=== PATIENT | female | born 1940 | race Caucasian/White ===

== ENCOUNTER 2024-03-01 14:15 | Inpatient (IN) | payer MEDICARE ==
[~2024-03-01] VITALS: Ht 160 cm; Wt 54.4 kg
[2024-03-01] MEDS ORDERED: ACETAMINOPHEN 325 MG TABLET ONE (15:21)
[2024-03-01] MEDS: ACETAMINOPHEN 325 MG TABLET PO ONE (15:46)
[2024-03-01] MEDS ORDERED: VITAMIN E PO (17:27)
[2024-03-01] MEDS ORDERED: CHOL100045 PO (17:27)
[2024-03-01] MEDS ORDERED: CYAN500T64 (17:27)
[2024-03-01] MEDS ORDERED: ASPI-1420 PO (17:27)
[2024-03-01] MEDS ORDERED: FAMO40TA7 PO (17:27)
[2024-03-01] MEDS ORDERED: GLUC15006 PO (17:27)
[2024-03-01] MEDS ORDERED: LISI10TA29 PO (17:27)
[2024-03-01] MEDS ORDERED: ESCI10TA PO (17:27)
[2024-03-01] MEDS ORDERED: METF-440 PO (17:27)
[2024-03-01] MEDS ORDERED: OMEG-167 PO (17:27)
[2024-03-01] MEDS ORDERED: MEMA10TA PO (17:27)
[2024-03-01] MEDS ORDERED: DONE5TAB34 PO (17:27)
[2024-03-01] MEDS ORDERED: UBID300C PO (17:27)
[2024-03-01] MEDS ORDERED: ATOR20TA PO (17:27)
[2024-03-01] MEDS ORDERED: SULF500T8 PO (17:27)
[2024-03-01 18:18] VITALS: O2SAT 98
[2024-03-01] MEDS: IBUPROFEN 600 MG TABLET PO ONE (18:23)
[2024-03-01 18:39] LABS: BASOPHILS # (AUTO) 0.1 K/uL (0.0-0.2); BASOPHILS % (AUTO) 0.4 % (0.0-2.0); EOSINOPHILS # (AUTO) 0.3 K/uL (0.0-0.7); HEMATOCRIT 34 % (33-45); HEMOGLOBIN 11.4 g/dL (11.5-14.8); LYMPHOCYTES # (AUTO) 1.9 K/uL (0.8-4.8); LYMPHOCYTES % (AUTO) 14.5 % (20.0-44.0); MEAN CORPUSCULAR HEMOGLOBIN 31 PG (26.0-33.0); MEAN CORPUSCULAR HGB CONC 33 g/dl (31.0-36.0); MEAN CORPUSCULAR VOLUME 93 fL (82-100); NEUTROPHILS # (AUTO) 9.8 K/uL (1.8-8.9); NEUTROPHILS % (AUTO) 75.1 % (43.0-81.0); PLATELET COUNT (AUTO) 131 K/uL (150-450); RED BLOOD CELL COUNT(AUTO) 3.69 MIL/uL (4.0-5.2); RED CELL DISTRIBUTION WIDTH 14.3 % (11.5-15.0); WHITE BLOOD COUNT (AUTO) 13.1 K/uL (4.3-11.0)
[2024-03-01 18:52] LABS: CALCIUM, SERUM 9.4 mg/dL (8.5-10.1); POTASSIUM 4.1 mmol/L (3.5-5.1)
[2024-03-01] MEDS ORDERED: ACETAMINOPHEN 325 MG TABLET PO PRN (19:00)
[2024-03-01] MEDS ORDERED: ONDANSETRON HCL/PF 4 MG/2 ML VIAL IVP PRN (19:00)
[2024-03-01 21:16] VITALS: BP 177/76; TEMP 98.2; O2SAT 96
[2024-03-01] MEDS: IV NS 0.9% 1,000 ML IV PRN (21:48)
[2024-03-01] MEDS: ENOXAPARIN SODIUM 40 MG/0.4 ML DISP.SYRIN SQ SCH (22:05)
[2024-03-02] MEDS: HYDROCODONE/APAP 5/325MG TABLET PO PRN (00:22)
[2024-03-02 05:52] VITALS: BP 140/57
[2024-03-02 07:24] LABS: BASOPHILS # (AUTO) 0.1 K/uL (0.0-0.2); BASOPHILS % (AUTO) 0.7 % (0.0-2.0); EOSINOPHILS # (AUTO) 0.4 K/uL (0.0-0.7); EOSINOPHILS % (AUTO) 4.4 % (0.0-6.0); HEMATOCRIT 33 % (33-45); LYMPHOCYTES # (AUTO) 1.4 K/uL (0.8-4.8); LYMPHOCYTES % (AUTO) 17.8 % (20.0-44.0); MEAN CORPUSCULAR HEMOGLOBIN 31 PG (26.0-33.0); MEAN CORPUSCULAR HGB CONC 34 g/dl (31.0-36.0); MEAN CORPUSCULAR VOLUME 94 fL (82-100); MONOCYTES # (AUTO) 0.7 K/uL (0.1-1.30); MONOCYTES % (AUTO) 8.7 % (2.0-12.0); NEUTROPHILS # (AUTO) 5.5 K/uL (1.8-8.9); NEUTROPHILS % (AUTO) 68.4 % (43.0-81.0); PLATELET COUNT (AUTO) 121 K/uL (150-450); RED BLOOD CELL COUNT(AUTO) 3.52 MIL/uL (4.0-5.2)
[2024-03-02 07:43] LABS: CARBON DIOXIDE 26 mmol/L (21-32); CHLORIDE 107 mmol/L (98-107); GLUCOSE 127 mg/dL (74-106); PHOSPHORUS 2.9 mg/dL (2.5-4.9); POTASSIUM 3.9 mmol/L (3.5-5.1); SODIUM SERUM 141 mmol/L (136-145); UREA NITROGEN, BLOOD 18 mg/dL (7-18)
[2024-03-02 07:49] LABS: APPEARANCE,URINE CLEAR (CLEAR); BILIRUBIN,URINE NEGATIVE (NEGATIVE); BLOOD, URINE NEGATIVE Ery/uL (NEGATIVE); COLOR,URINE YELLOW (YELLOW); KETONES,URINE NEGATIVE (NEGATIVE); LEUKOCYTE ESTERASE ,URINE NEGATIVE (NEGATIVE); NITRITE, URINE NEGATIVE (NEGATIVE); PROTEIN,URINE NEGATIVE (NEGATIVE); UGLUCOSE NEGATIVE (NEGATIVE); UROBILINOGEN,URINE 0.2 EU/dL (0.2)
[2024-03-02 08:00] VITALS: BP_SYST 131; BP_SYST 166; BP_DIAS 59; BP_DIAS 64; TEMP 98.2; TEMP 99; O2SAT 99
[2024-03-02 16:00] VITALS: BP 144/65; TEMP 98.9; O2SAT 89
[2024-03-02] MEDS ORDERED: Medication Not On Formulary EA (Omega-3 Fatty Acids/Fish Oil (Fish Oil 1,000 Mg Softgel) PO SCH (17:00)
[2024-03-02] MEDS ORDERED: Medication Not On Formulary EA (Ubidecarenone (Co Q-10) 300 MG) PO SCH (18:00)
[2024-03-02] MEDS ORDERED: GLUCOSAMINE HCL 3000 MG PO SCH (18:00)
[2024-03-02] MEDS: VITAMIN E 400 UNIT CAPSULE PO SCH (19:06)
[2024-03-02] MEDS: MEMANTINE HCL 5 MG TABLET PO SCH (19:07)
[2024-03-02] MEDS: ATORVASTATIN 10 MG TABLET PO SCH (19:07)
[2024-03-02] MEDS: FAMOTIDINE (20 MG) 20 MG TABLET PO SCH (19:08)
[2024-03-02] MEDS: LISINOPRIL (10MG) 10 MG TABLET PO SCH (19:08)
[2024-03-02] MEDS: METFORMIN 500 MG TABLET PO SCH (19:09)
[2024-03-02] MEDS: ESCITALOPRAM OXALATE (10 MG) 10 MG TABLET PO SCH (19:09)
[2024-03-02 20:00] VITALS: BP 155/64; TEMP 97.9; O2SAT 98
[2024-03-03 07:32] LABS: BASOPHILS # (AUTO) 0.1 K/uL (0.0-0.2); BASOPHILS % (AUTO) 0.9 % (0.0-2.0); EOSINOPHILS # (AUTO) 0.2 K/uL (0.0-0.7); EOSINOPHILS % (AUTO) 1.6 % (0.0-6.0); HEMATOCRIT 30 % (33-45); HEMOGLOBIN 9.9 g/dL (11.5-14.8); LYMPHOCYTES # (AUTO) 1.4 K/uL (0.8-4.8); LYMPHOCYTES % (AUTO) 14.2 % (20.0-44.0); MEAN CORPUSCULAR HEMOGLOBIN 31 PG (26.0-33.0); MEAN CORPUSCULAR HGB CONC 33 g/dl (31.0-36.0); MEAN CORPUSCULAR VOLUME 94 fL (82-100); MONOCYTES # (AUTO) 0.7 K/uL (0.1-1.30); MONOCYTES % (AUTO) 6.9 % (2.0-12.0); NEUTROPHILS # (AUTO) 7.5 K/uL (1.8-8.9); NEUTROPHILS % (AUTO) 76.4 % (43.0-81.0); PLATELET COUNT (AUTO) 96 K/uL (150-450); RED BLOOD CELL COUNT(AUTO) 3.19 MIL/uL (4.0-5.2); RED CELL DISTRIBUTION WIDTH 14.4 % (11.5-15.0); WHITE BLOOD COUNT (AUTO) 9.8 K/uL (4.3-11.0)
[2024-03-03 07:55] LABS: CALCIUM, SERUM 8.7 mg/dL (8.5-10.1); CARBON DIOXIDE 24 mmol/L (21-32); CHLORIDE 107 mmol/L (98-107); CREATININE 0.8 mg/dL (0.6-1.3); GLUCOSE 114 mg/dL (74-106); MAGNESIUM 1.9 mg/dL (1.8-2.4); PHOSPHORUS 2.2 mg/dL (2.5-4.9); POTASSIUM 3.9 mmol/L (3.5-5.1); SODIUM SERUM 139 mmol/L (136-145); UREA NITROGEN, BLOOD 12 mg/dL (7-18)
[2024-03-03 08:00] VITALS: BP 156/70; TEMP 99.1; O2SAT 92
[2024-03-03] MEDS: DONEPEZIL 5 MG TABLET PO SCH (08:28)
[2024-03-03] MEDS: CYANOCOBALAMIN 500 MCG TABLET PO SCH (08:28)
[2024-03-03] MEDS: ASPIRIN EC 81 MG TABLET.DR PO SCH (08:28)
[2024-03-03 10:57] LABS: NEUTROPHILS % (MANUAL) 80 (42-76)
[2024-03-03 10:58] LABS: EOSINOPHILS % (MANUAL) 2 % (0-4); LYMPHOCYTES % (MANUAL) 12 % (16-48); MONOCYTES % (MANUAL) 6 % (0-11.0); PLATELET ESTIMATE DECREASED
[2024-03-03] MEDS: K PHOS NEUTRAL 250 MG TABLET PO ONE (15:20)
[2024-03-03 16:00] VITALS: BP 162/70; TEMP 98.7; O2SAT 97
[2024-03-03 20:00] VITALS: BP_SYST 120; BP_SYST 122; BP_SYST 127; BP_DIAS 65; BP_DIAS 73; BP_DIAS 74; TEMP 97.5; TEMP 98.2; TEMP 99.1; O2SAT 92; O2SAT 93; O2SAT 98
[2024-03-04 07:30] VITALS: BP_SYST 118; BP_SYST 148; BP_DIAS 50; BP_DIAS 59; TEMP 97.9; TEMP 99.5; O2SAT 92; O2SAT 96
[2024-03-04] MEDS ORDERED: HYDR-3972 PO (10:22)
[2024-03-04 16:00] VITALS: BP 128/74; TEMP 99.7; O2SAT 93
[2024-03-04 17:15] VITALS: BP 128/74
== END 2024-03-04 19:20 | DRG 536 ==
LOC: ER 14:43 → MED 19:51
PROVIDERS: ADMIT Nurse Practitioner Acute Care; ATTEND Nurse Practitioner Acute Care
DX: S32.512A Fracture of superior rim of left pubis, initial encounter for closed fracture (principal); S32.111A Minimally displaced Zone I fracture of sacrum, initial encounter for closed fracture; S32.591A Other specified fracture of right pubis, initial encounter for closed fracture; W01.0XXA Fall on same level from slipping, tripping and stumbling without subsequent striking against object, initial encounter; D64.9 Anemia, unspecified; D72.829 Elevated white blood cell count, unspecified; F03.90 Unspecified dementia, unspecified severity, without behavioral disturbance, psychotic disturbance, mood disturbance, and anxiety; I10 Essential (primary) hypertension; Z86.73 Personal history of transient ischemic attack (TIA), and cerebral infarction without residual deficits; Z79.84 Long term (current) use of oral hypoglycemic drugs; E11.9 Type 2 diabetes mellitus without complications; E78.5 Hyperlipidemia, unspecified; Y93.9 Activity, unspecified; Y92.009 Unspecified place in unspecified non-institutional (private) residence as the place of occurrence of the external cause; S30.0XXA Contusion of lower back and pelvis, initial encounter; S90.811A Abrasion, right foot, initial encounter; X58.XXXA Exposure to other specified factors, initial encounter
CPT/HCPCS: 36415; 70450-TC; 72190-TC; 72192-TC; 80048-TC; 83735-TC; 84100-TC; 85025-TC; 87081-TC; 97112-TC; 97116-TC; 97530-TC; A4223; G0378; J1650; J7030